=== PATIENT | male | born 1955 | race Caucasian/White ===

== ENCOUNTER 2017-01-06 09:13 | Day surgery (SDC) | payer OTHER ==
[~2017-01-06 09:13] MED LIST: PROPOFOL 500 MG/50 ML EMU IV ONE
[2017-01-06 11:38] VITALS: BP 160/110; PULSE 70; RESP 18; TEMP 97.4; O2SAT 94
== END 2017-01-06 11:50 | disposition home or self-care (01) ==
LOC: SURG 09:13
PROVIDERS: ATTEND Surgery
DX: Z12.11 Encounter for screening for malignant neoplasm of colon (principal); K57.30 Diverticulosis of large intestine without perforation or abscess without bleeding
CPT/HCPCS: 45378; J2704

== ENCOUNTER 2018-05-28 15:30 | Outpatient (CLI) | payer OTHER ==
[2017-01-06 11:38] VITALS: O2SAT 94
== END 2018-05-28 15:31 | disposition home or self-care (01) ==
LOC: CONVCARE 15:30
PROVIDERS: ATTEND Orthopaedic Surgery
DX: M16.12 Unilateral primary osteoarthritis, left hip (principal); Z47.89 Encounter for other orthopedic aftercare; Z98.890 Other specified postprocedural states
CPT/HCPCS: 73502

== ENCOUNTER 2019-03-18 14:06 | Outpatient (CLI) | payer BC ==
[2017-01-06 11:38] VITALS: O2SAT 94
== END 2019-03-18 14:07 | disposition home or self-care (01) ==
LOC: CONVCARE 14:06
PROVIDERS: ATTEND Orthopaedic Surgery
DX: Z47.1 Aftercare following joint replacement surgery (principal); Z96.642 Presence of left artificial hip joint
CPT/HCPCS: 73501